=== PATIENT | female | born 1955 | race Caucasian/White ===

== ENCOUNTER 2020-06-25 07:55 | Outpatient (REF) | payer OTHER, SELFPAY ==
[2020-06-25 11:45] LABS: Estimated Average Glucose 128 mg/dL; Hemoglobin A1c % 6.1 %
[2020-06-25 11:49] LABS: Alanine Aminotransferase 19 U/L (0-31); Albumin Level 4.2 g/dL (3.5-5.0); Alkaline Phosphatase 63 U/L (39-117); Anion Gap 14 (12-20); Aspartate Amino Transferase 17 U/L (5-31); Bilirubin Total 0.6 mg/dL (0.0-1.0); Blood Urea Nitrogen 19 mg/dL (9-16); Calcium 8.8 mg/dL (8.4-10.2); Carbon Dioxide 24 mmol/L (22-29); Chloride 107 mmol/L (96-108); Cholesterol 229 mg/dL; Estimated Glomerular Filt Rate > 60; Glucose Fasting 124 mg/dL (60-99); HDL Cholesterol 58 mg/dL; LDL Cholesterol Calculated 150 mg/dl; Potassium 4.6 mmol/L (3.3-5.1); Sodium 140 mmol/L (135-145); Total Protein 7.1 g/dL (6.5-8.0); Triglycerides 105 mg/dL
[2020-06-25 12:15] LABS: Creatinine Urine 150.52 mg/dL; Microalbum/Creatinine Ratio Ur 3.9 ug/mg cr
== END 2020-06-25 07:56 | disposition home or self-care (01) ==
LOC: HO.MANLR 07:55
PROVIDERS: PCP Internal Medicine; Visit Provider Internal Medicine
DX: E11.65 Type 2 diabetes mellitus with hyperglycemia (principal)
CPT/HCPCS: 36415; 80053; 80061; 82043; 83036

== ENCOUNTER 2020-10-23 08:00 | Outpatient (REF) | payer OTHER, SELFPAY ==
[2020-10-23 11:24] LABS: Estimated Average Glucose 123 mg/dL; Hemoglobin A1c % 5.9 %
== END 2020-10-23 08:01 | disposition home or self-care (01) ==
LOC: HO.MANLDS 08:00
PROVIDERS: PCP Internal Medicine; Visit Provider Internal Medicine
DX: E11.65 Type 2 diabetes mellitus with hyperglycemia (principal)
CPT/HCPCS: 36415; 83036

== ENCOUNTER 2021-03-18 07:32 | Outpatient (REF) | payer OTHER, SELFPAY ==
[2021-03-18 11:23] LABS: Creatinine Urine 124.52 mg/dL; Microalbumin Urine < 5.0 mg/L
[2021-03-18 11:28] LABS: Alanine Aminotransferase 19 U/L (0-31); Albumin Level 4.3 g/dL (3.5-5.0); Alkaline Phosphatase 64 U/L (39-117); Anion Gap 12 (12-20); Aspartate Amino Transferase 18 U/L (5-31); Bilirubin Total 0.6 mg/dL (0.0-1.0); Blood Urea Nitrogen 12 mg/dL (9-16); Calcium 9.3 mg/dL (8.4-10.2); Carbon Dioxide 29 mmol/L (22-29); Chloride 103 mmol/L (96-108); Cholesterol 182 mg/dL; Estimated Glomerular Filt Rate > 60; Glucose Fasting 186 mg/dL (60-99); HDL Cholesterol 63 mg/dL; LDL Cholesterol Calculated 103 mg/dl; Potassium 4.6 mmol/L (3.3-5.1); Sodium 139 mmol/L (135-145); Total Protein 7.1 g/dL (6.5-8.0); Triglycerides 84 mg/dL
== END 2021-03-18 07:33 | disposition home or self-care (01) ==
LOC: HO.MANLDS 07:32
PROVIDERS: PCP Internal Medicine; Visit Provider Internal Medicine
DX: E11.65 Type 2 diabetes mellitus with hyperglycemia (principal); I10 Essential (primary) hypertension
CPT/HCPCS: 36415; 80053; 80061; 82043

== ENCOUNTER 2021-06-19 07:52 | Outpatient (REF) | payer OTHER, SELFPAY ==
[2021-06-19 08:52] LABS: Alanine Aminotransferase 18 U/L (0-31); Albumin Level 4.1 g/dL (3.5-5.0); Alkaline Phosphatase 94 U/L (39-117); Anion Gap 11 (12-20); Aspartate Amino Transferase 18 U/L (5-31); Bilirubin Total 0.2 mg/dL (0.0-1.0); Blood Urea Nitrogen 13 mg/dL (9-16); Calcium 9.5 mg/dL (8.4-10.2); Carbon Dioxide 31 mmol/L (22-29); Chloride 103 mmol/L (96-108); Estimated Glomerular Filt Rate > 60; Glucose Random 269 mg/dL (60-115); Potassium 5.1 mmol/L (3.3-5.1); Sodium 140 mmol/L (135-145)
[2021-06-19 08:58] LABS: Estimated Average Glucose 212 mg/dL
[2021-06-19 09:07] LABS: ~HepC Num1 0.07 S/CO (0.00-0.79); ~Hepatitis C Antibody Nonreactive (Nonreactive)
[2021-06-19 09:18] LABS: Thyroid Stimulating Hormone 1.52 uIU/mL (0.32-4.0)
== END 2021-06-19 07:53 | disposition home or self-care (01) ==
LOC: HO.LAB 07:52
PROVIDERS: PCP Internal Medicine; Visit Provider Internal Medicine
DX: E11.65 Type 2 diabetes mellitus with hyperglycemia (principal); E03.9 Hypothyroidism, unspecified; I10 Essential (primary) hypertension; Z11.59 Encounter for screening for other viral diseases
CPT/HCPCS: 36415; 80053; 83036; 84443; 86803

== ENCOUNTER 2021-08-29 09:09 | Outpatient (REF) | payer MEDICARE, SELFPAY ==
[2021-08-29 10:32] LABS: Cholesterol 169 mg/dL; HDL Cholesterol 52 mg/dL; LDL Cholesterol Calculated 96 mg/dl; Triglycerides 107 mg/dL
[2021-08-29 10:40] LABS: Creatinine Urine 87.12 mg/dL; Microalbumin Urine < 5.0 mg/L
[2021-08-29 10:43] LABS: Estimated Average Glucose 151 mg/dL; Hemoglobin A1c % 6.9 %
== END 2021-08-29 09:10 | disposition home or self-care (01) ==
LOC: HO.LAB 09:09
PROVIDERS: PCP Internal Medicine; Visit Provider Internal Medicine
DX: E11.65 Type 2 diabetes mellitus with hyperglycemia (principal)
CPT/HCPCS: 36415; 80061; 82043; 83036

== ENCOUNTER 2021-12-13 09:41 | Outpatient (REF) | payer MEDICARE, SELFPAY ==
[2021-12-13 11:20] LABS: Estimated Average Glucose 134 mg/dL; Hemoglobin A1c % 6.3 %
[2021-12-13 11:27] LABS: Alanine Aminotransferase 31 U/L (0-31); Albumin Level 4.3 g/dL (3.5-5.0); Alkaline Phosphatase 80 U/L (39-117); Anion Gap 15 (12-20); Aspartate Amino Transferase 22 U/L (5-31); Bilirubin Total 0.7 mg/dL (0.0-1.0); Blood Urea Nitrogen 14 mg/dL (9-16); Calcium 9.2 mg/dL (8.4-10.2); Carbon Dioxide 27 mmol/L (22-29); Chloride 103 mmol/L (96-108); Cholesterol 168 mg/dL; Estimated Glomerular Filt Rate > 60; Glucose Random 166 mg/dL (60-115); HDL Cholesterol 52 mg/dL; LDL Cholesterol Calculated 97 mg/dl; Potassium 5.2 mmol/L (3.3-5.1); Sodium 140 mmol/L (135-145); Total Protein 7.4 g/dL (6.5-8.0); Triglycerides 99 mg/dL
[2021-12-13 11:47] LABS: Free T4 (Free Thyroxine) 1.09 ng/dL (0.71-1.85); Thyroid Stimulating Hormone 1.29 uIU/mL (0.32-4.0)
[2021-12-13 11:55] LABS: Creatinine Urine 301.08 mg/dL; Microalbum/Creatinine Ratio Ur 5.6 ug/mg cr
== END 2021-12-13 09:42 | disposition home or self-care (01) ==
LOC: HO.LAB 09:41
PROVIDERS: PCP Internal Medicine; Visit Provider Internal Medicine
DX: E03.9 Hypothyroidism, unspecified (principal); E11.65 Type 2 diabetes mellitus with hyperglycemia
CPT/HCPCS: 36415; 80053; 80061; 82043; 83036; 84439; 84443

== ENCOUNTER 2021-12-23 14:13 | Outpatient (REF) | payer MEDICARE, SELFPAY ==
--- NOTE | ~2021-12-23 | XR_ITS ---
EXAMINATION: XR ANKLE, LEFT CLINICAL INFORMATION: Laceration. COMPARISON: None TECHNIQUE: AP, lateral, and mortise views of the left ankle. FINDINGS: Soft tissue laceration of the posterior ankle with a few small radiodensities, possibly foreign bodies. No acute fracture or malalignment. XR/XR ankle LT 2V IMPRESSION: Soft tissue laceration along the heel with some subcutaneous radiodensities, possibly foreign bodies. No acute osseous abnormalities.
== END 2021-12-23 14:14 | disposition home or self-care (01) ==
LOC: HO.XRAY 14:13
PROVIDERS: PCP Internal Medicine; Visit Provider Physician Assistant
DX: S91.012A Laceration without foreign body, left ankle, initial encounter (principal); X58.XXXA Exposure to other specified factors, initial encounter; Y93.9 Activity, unspecified; Y92.9 Unspecified place or not applicable; Y99.9 Unspecified external cause status
CPT/HCPCS: 73600

== ENCOUNTER 2022-01-17 12:50 | Outpatient (REF) | payer MEDICARE, SELFPAY ==
--- NOTE | ~2022-01-17 | CT_ITS ---
EXAMINATION: CT OF THE ANKLE WITHOUT CONTRAST, LEFT CLINICAL INFORMATION: Foreign body or object entering through skin. COMPARISON: Radiographs dated 12/23/2021. TECHNIQUE: Multidetector volumetric imaging was obtained through the left ankle without contrast. Multiplanar reformatted images in coronal and sagittal orientations were submitted. This CT examination was performed using dose optimization techniques as appropriate, variously including the following: *Automated exposure control *Adjustment of mA and/or kV according to patient size (this includes techniques or standardized protocols for targeted exams where dose is matched to indication/reason for exam; i.e. extremities or head) *Use of iterative reconstruction technique DLP: 144 mGy-cm FINDINGS: There is generalized soft tissue swelling at the ankle with significant subcutaneous edema. A skin injury is evident at the posterolateral aspect of the calcaneal tuberosity. There is a punctate 1 mm radiodense focus in the subcutaneous fat just superficial to the distal Achilles tendon as seen on image 204 of series 5, possibly a punctate residual radiodense foreign body or a small focus of soft tissue calcification. No other findings to indicate a residual foreign body. No appreciable fractures at the calcaneal tuberosity. The Achilles tendon is intact. There is a subtle avulsion fracture at the anterior process of the calcaneus along its dorsal margin corresponding to the attachment of the bifurcate ligament. No additional acute fractures are identified. There are chronic osseous fragments in the anterolateral gutter and at the tip of the medial malleolus which correspond to prior avulsion injuries. There is a small osseous defect at the talar dome laterally measuring 5 x 8 mm in area, corresponding to a chronic osteochondral injury. Minimal talocrural arthrosis. Subtalar joint appears relatively well preserved. Moderate sized enthesopathic spur is present at the plantar fascial origin on the calcaneus. Intrinsic foot musculature is normal in attenuation. CT/CT ankle LT wo IV con IMPRESSION: 1. Soft tissue injury at the posterolateral aspect of the calcaneal tuberosity. There is a punctate 1 mm radiodense focus in the subcutaneous fat just superficial to the distal Achilles tendon, possibly a punctate residual radiodense foreign body or a small focus of soft tissue calcification. 2. Subtle avulsion fracture at the anterior process of the calcaneus at the attachment of the bifurcate ligament. 3. 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
== END 2022-01-17 12:51 | disposition home or self-care (01) ==
LOC: HO.CT 12:50
PROVIDERS: Visit Provider Physician Assistant
DX: S90.55 Superficial foreign body of ankle (principal); W45.8XXD Other foreign body or object entering through skin, subsequent encounter
CPT/HCPCS: 73700

== ENCOUNTER → 2022-01-30 10:13 | Outpatient (BNVA) | payer MEDICARE, SELFPAY | PROVIDERS: PCP Internal Medicine; Visit Provider Physician Assistant | DX: S92.002A Unspecified fracture of left calcaneus, initial encounter for closed fracture (principal); S97.02XA Crushing injury of left ankle, initial encounter | CPT/HCPCS: 99202 ==

== ENCOUNTER → 2022-02-12 08:16 | Outpatient (BNVA) | payer MEDICARE, SELFPAY | PROVIDERS: PCP Internal Medicine; Visit Provider Physician Assistant | DX: S82.892D Other fracture of left lower leg, subsequent encounter for closed fracture with routine healing (principal); S90.812D Abrasion, left foot, subsequent encounter | CPT/HCPCS: 99212 ==

== ENCOUNTER 2022-03-05 | Outpatient (REF) | payer MEDICARE, SELFPAY ==
--- NOTE | ~2022-03-05 | XR_ITS ---
EXAMINATION: XR calcaneus LT min 2V CLINICAL INFORMATION: Reason for Exam S92.002A - Unspecified fracture of left calcaneus, initial encounter for... COMPARISON: None. TECHNIQUE: Two views of the calcaneus FINDINGS: Previously seen avulsion fracture of the anterior process of the calcaneus is not definitively appreciated radiographically. Plantar calcaneal spurring. Joint spaces are maintained. No joint effusion or soft tissue abnormality. XR/XR calcaneus LT min 2V IMPRESSION: 1. Previously seen avulsion fracture of the anterior process of the calcaneus is not definitively appreciated radiographically. 2. Plantar calcaneal spurring.
== END 2022-03-05 00:01 | disposition home or self-care (01) ==
LOC: HO.HOSX
PROVIDERS: Visit Provider Physician Assistant
DX: S92.002A Unspecified fracture of left calcaneus, initial encounter for closed fracture (principal)
CPT/HCPCS: 73650; 99212

== ENCOUNTER 2022-03-19 10:13 | Outpatient (REF) | payer MEDICARE, SELFPAY ==
[2022-03-19 11:18] LABS: Estimated Average Glucose 140 mg/dL; Hemoglobin A1c % 6.5 %
== END 2022-03-19 10:14 | disposition home or self-care (01) ==
LOC: HO.LABR 10:13
PROVIDERS: PCP Internal Medicine; Visit Provider Internal Medicine
DX: E11.65 Type 2 diabetes mellitus with hyperglycemia (principal)
CPT/HCPCS: 36415; 83036

== ENCOUNTER 2022-07-09 12:46 | Outpatient (REF) | payer MEDICARE, SELFPAY ==
[2022-07-09 14:17] LABS: Estimated Average Glucose 137 mg/dL; Hemoglobin A1c % 6.4 %
== END 2022-07-09 12:47 | disposition home or self-care (01) ==
LOC: HO.LABR 12:46
PROVIDERS: PCP Internal Medicine; Visit Provider Internal Medicine
DX: E11.65 Type 2 diabetes mellitus with hyperglycemia (principal)
CPT/HCPCS: 36415; 83036

== ENCOUNTER 2022-07-24 07:57 | Outpatient (REF) | payer MEDICARE, SELFPAY ==
--- NOTE | ~2022-07-24 | MM_ITS ---
EXAMINATION: BONE DENSITOMETRY CLINICAL INDICATION: Osteopenia. COMPARISON: None (current study represents initial baseline exam). TECHNIQUE: Using a [employer] DXA System (software version: 13.1) manufactured by [employer], dual-energy x-ray absorptiometry was performed of the lumbar spine and left hip. The images are of good technical quality. Summary results are attached. FINDINGS: AP SPINE L1-L4: BMD 1.171 g/cm2, Z-score 0.8, T-score -0.1, normal. LEFT FEMUR, NECK: BMD 0.892 g/cm2, Z-score 0.0, T-score -1.0, normal. LEFT FEMUR, TOTAL: BMD 1.014 g/cm2, Z-score 0.8, T-score 0.0, normal. IDENTIFIED RISK FACTORS: Menopause, secondary osteoporosis. HISTORY OF FRACTURE: None listed. MEDICATIONS: Vitamin D. MM/XR DEXA axial skeleton IMPRESSION: 1. DIAGNOSIS: Normal bone density based on the lowest T-score value of -1.0 in the femoral neck applying World Health Organization criteria. 2. 10-YEAR FRACTURE RISK PREDICTION, FRAX: According to the guidelines, FRAX calculation should only be performed on patients in the osteopenia bone density category. Therefore, FRAX was not performed on this patient. 3. Treatment Recommendations: NOF guidelines recommend consideration for treatment in postmenopausal women and men age 50 and older presenting with the following: -A hip or vertebral (clinical or morphometric) fracture. -T-score less than or equal to -2.5 at the femoral neck or spine after appropriate evaluation to exclude secondary causes. -Low bone mass at the hip or spine and a 10-year fracture probability by FRAX of greater than or equal to 3% for hip fracture or greater than or equal to 20% for major osteoporotic fracture based on the [place] adapted WHO algorithm. 4. Other Recommendations: All treatment decisions require clinical judgment and consideration of individual patient factors, including patient preferences, comorbidities, previous drug use, risk factors not captured in the FRAX model (e.g. frailty, falls, vitamin D deficiency, increased bone turnover, interval significant decline in bone density) and possible under or overestimation of fracture risk by FRAX. FUTURE SCAN RECOMMENDATION: People with diagnosed cases of osteoporosis or at high risk for fracture should have regular bone mineral density tests. For patients eligible for Medicare, routine testing is allowed once every 2 years. The testing frequency can be increased to one year for patients who have rapidly progressing disease, those who are receiving or discontinuing medical therapy to restore bone mass, or have additional risk factors.
== END 2022-07-24 07:58 | disposition home or self-care (01) ==
LOC: HO.MAMMO 07:57
PROVIDERS: Visit Provider Internal Medicine
DX: Z13.820 Encounter for screening for osteoporosis (principal); Z78.0 Asymptomatic menopausal state; M85.80 Other specified disorders of bone density and structure, unspecified site
CPT/HCPCS: 77080

== ENCOUNTER 2022-11-17 08:17 | Outpatient (REF) | payer MEDICARE, SELFPAY ==
[2022-11-17 09:15] LABS: Estimated Average Glucose 114 mg/dL; Hemoglobin A1C 148.6408 umol/L; Hemoglobin A1c % 5.6 %
== END 2022-11-17 08:18 | disposition home or self-care (01) ==
LOC: HO.LABR 08:17
PROVIDERS: Visit Provider Internal Medicine
DX: E11.65 Type 2 diabetes mellitus with hyperglycemia (principal)
CPT/HCPCS: 36415; 83036

== ENCOUNTER 2023-03-31 09:46 | Outpatient (REF) | payer MEDICARE, SELFPAY ==
[2023-03-31 10:50] LABS: Estimated Average Glucose 163 mg/dL; Hemoglobin A1c % 7.3 % (<6.0)
== END 2023-03-31 09:47 | disposition home or self-care (01) ==
LOC: HO.LABR 09:46
PROVIDERS: PCP Internal Medicine; Visit Provider Internal Medicine
DX: E11.65 Type 2 diabetes mellitus with hyperglycemia (principal)
CPT/HCPCS: 36415; 83036

== ENCOUNTER 2023-04-06 12:03 | Outpatient (REF) | payer MEDICARE, SELFPAY ==
--- NOTE | ~2023-04-06 | XR_ITS ---
EXAMINATION: XR HAND, BILATERAL CLINICAL INFORMATION: Pain COMPARISON: None available. TECHNIQUE: 3 views of each hand FINDINGS: RIGHT: No acute visible fracture or dislocation. Slight positive ulnar variance. Mild multi joint arthritic changes. Joint spaces and alignment are maintained. Soft tissues are unremarkable. LEFT: No acute visible fracture or dislocation. Slight positive ulnar variance. Mild multi joint arthritic changes. Joint spaces and alignment are maintained. Soft tissues are unremarkable. XR/XR hand RT min 3V IMPRESSION: 1. No acute visible fracture or dislocation. 2. Bilateral mild multi joint arthritic changes. 3. Bilateral slight positive ulnar variance.
--- NOTE | ~2023-04-06 | XR_ITS ---
EXAMINATION: XR FOOT, LEFT CLINICAL INFORMATION: Pain COMPARISON: Left calcaneus radiograph from 03/05/2022 TECHNIQUE: AP, lateral, and oblique views of the left foot. FINDINGS: No acute visible fracture or dislocation. Multi joint arthritic changes. Plantar calcaneal heel spur. Slight spurring the dorsal midfoot. Joint spaces and alignment are maintained. Soft tissues are unremarkable. XR/XR foot LT min 3V IMPRESSION: 1. No acute visible fracture or dislocation. 2. Multi joint arthritic changes. 3. Plantar calcaneal heel spur.
--- NOTE | ~2023-04-06 | XR_ITS ---
EXAMINATION: XR HAND, BILATERAL CLINICAL INFORMATION: Pain COMPARISON: None available. TECHNIQUE: 3 views of each hand FINDINGS: RIGHT: No acute visible fracture or dislocation. Slight positive ulnar variance. Mild multi joint arthritic changes. Joint spaces and alignment are maintained. Soft tissues are unremarkable. LEFT: No acute visible fracture or dislocation. Slight positive ulnar variance. Mild multi joint arthritic changes. Joint spaces and alignment are maintained. Soft tissues are unremarkable. XR/XR hand LT min 3V IMPRESSION: 1. No acute visible fracture or dislocation. 2. Bilateral mild multi joint arthritic changes. 3. Bilateral slight positive ulnar variance.
== END 2023-04-06 12:04 | disposition home or self-care (01) ==
LOC: HO.XRAY 12:03
PROVIDERS: PCP Internal Medicine; Visit Provider Internal Medicine
DX: M79.641 Pain in right hand (principal); M79.672 Pain in left foot; M79.642 Pain in left hand
CPT/HCPCS: 73130; 73630

== ENCOUNTER 2023-05-23 07:53 | Outpatient (REF) | payer MEDICARE, SELFPAY ==
[2023-05-23 09:04] LABS: Estimated Average Glucose 146 mg/dL; Hemoglobin A1c % 6.7 % (<6.0)
== END 2023-05-23 07:54 | disposition home or self-care (01) ==
LOC: HO.LABR 07:53
PROVIDERS: PCP Internal Medicine; Visit Provider Internal Medicine
DX: E11.65 Type 2 diabetes mellitus with hyperglycemia (principal)
CPT/HCPCS: 36415; 83036

== ENCOUNTER 2023-06-15 13:00 | Outpatient (RCR) | payer MEDICARE, SELFPAY | END 2023-07-15 10:42 | disposition home or self-care (01) | LOC: HO.PT 13:00 | PROVIDERS: PCP Internal Medicine; Visit Provider Physician Assistant | DX: R20.0 Anesthesia of skin (principal) | CPT/HCPCS: 97110; 97140; 97161 ==

== ENCOUNTER 2023-08-04 09:55 | Outpatient (REF) | payer MEDICARE, SELFPAY | END 2023-08-04 09:56 | disposition home or self-care (01) | LOC: HO.MAMMO 09:55 | PROVIDERS: PCP Internal Medicine; Visit Provider Internal Medicine | DX: Z12.31 Encounter for screening mammogram for malignant neoplasm of breast (principal) | CPT/HCPCS: 77063; 77067 ==

== ENCOUNTER → 2023-08-04 10:30 | Outpatient (BNV) | payer MEDICARE, SELFPAY | PROVIDERS: PCP Internal Medicine; Visit Provider Radiology Diagnostic Radiology | DX: Z12.31 Encounter for screening mammogram for malignant neoplasm of breast (principal) | CPT/HCPCS: 77063; 77067 ==

== ENCOUNTER 2023-08-18 09:49 | Outpatient (REF) | payer MEDICARE, SELFPAY ==
[2023-08-18 10:06] LABS: MANUAL DIFF FLAG NO
[2023-08-18 10:34] LABS: Basophils Absolute Auto 0.1 X10*3/uL (0.0-0.2); Basophils Percent Auto 0.9 % (0-2); Eosinophils Absolute Auto 0.3 X10*3/uL (0.0-0.4); Eosinophils Percent Auto 3.8 % (0-4); Hematocrit 43.9 % (37.0-47.0); Imm Gran Abs Auto 0.06 X10*3/uL (0.00-0.03); Imm Gran Pct Auto 0.7 % (0.0-0.4); Lymphocytes Percent Auto 23.8 % (20-40); Mean Corpuscular HGB Conc 34.2 g/dl (31.0-35.0); Mean Corpuscular Hemoglobin 31.9 pg (27.0-33.0); Mean Corpuscular Volume 93.4 fL (80.0-98.0); Mean Platelet Volume 9.9 fL (9.4-12.3); Monocytes Absolute Auto 0.7 X10*3/uL (0.1-1.2); Monocytes Percent Auto 8.5 % (2-11); Neutrophils Absolute Auto 5.3 x10*3/uL (2.0-8.3); Neutrophils Percent Auto 62.3 % (45-73); Platelet Count 321 X10*3/uL (160-400); White Blood Count 8.5 X10*3/uL (4.8-10.8)
[2023-08-18 10:58] LABS: Estimated Average Glucose 123 mg/dL; Hemoglobin A1C 149.4011 umol/L; Hemoglobin A1c % 5.9 % (<6.0)
[2023-08-18 11:03] LABS: Creatinine Urine 247.59 mg/dL; Microalbum/Creatinine Ratio Ur 5.2 ug/mg cr (<30)
[2023-08-18 11:27] LABS: Alanine Aminotransferase 18 U/L (0-31); Albumin Level 4.3 g/dL (3.5-5.0); Alkaline Phosphatase 64 U/L (39-117); Anion Gap 11 (12-20); Aspartate Amino Transferase 19 U/L (5-31); Bilirubin Total 0.7 mg/dL (0.0-1.0); Blood Urea Nitrogen 15 mg/dL (9-16); Calcium 9.6 mg/dL (8.4-10.2); Carbon Dioxide 29 mmol/L (22-29); Chloride 106 mmol/L (96-108); Cholesterol 185 mg/dL (<200); Estimated Glomerular Filt Rate > 60; Glucose Random 137 mg/dL (60-115); HDL Cholesterol 62 mg/dL (>40); LDL Cholesterol Calculated 104 mg/dL (<100); Potassium 4.8 mmol/L (3.3-5.1); Sodium 141 mmol/L (135-145); Total Protein 7.4 g/dL (6.5-8.0); Triglycerides 96 mg/dL (<150)
== END 2023-08-18 09:50 | disposition home or self-care (01) ==
LOC: HO.LAB 09:49
PROVIDERS: PCP Internal Medicine; Visit Provider Internal Medicine
DX: Z00.00 Encounter for general adult medical examination without abnormal findings (principal); Z13.6 Encounter for screening for cardiovascular disorders; E11.9 Type 2 diabetes mellitus without complications; E03.9 Hypothyroidism, unspecified
CPT/HCPCS: 36415; 80053; 80061; 82043; 82570; 83036; 84443; 85025

== ENCOUNTER 2024-01-29 11:16 | Outpatient (REF) | payer MEDICARE, SELFPAY ==
[2024-01-29 12:26] LABS: Estimated Average Glucose 174 mg/dL; Hemoglobin A1c % 7.7 % (<6.0)
[2024-01-29 12:30] LABS: Creatinine Urine 213.48 mg/dL; Microalbum/Creatinine Ratio Ur 4.6 ug/mg cr (<30)
[2024-01-29 12:51] LABS: Alanine Aminotransferase 17 U/L (0-31); Albumin Level 4.3 g/dL (3.5-5.0); Alkaline Phosphatase 75 U/L (39-117); Anion Gap 13 (12-20); Aspartate Amino Transferase 16 U/L (5-31); Bilirubin Total 0.6 mg/dL (0.0-1.0); Blood Urea Nitrogen 18 mg/dL (9-16); Calcium 9.8 mg/dL (8.4-10.2); Carbon Dioxide 28 mmol/L (22-29); Chloride 106 mmol/L (96-108); Cholesterol 211 mg/dL (<200); Estimated Glomerular Filt Rate > 60; Glucose Random 213 mg/dL (60-115); HDL Cholesterol 62 mg/dL (>40); LDL Cholesterol Calculated 123 mg/dL (<100); Potassium 4.6 mmol/L (3.3-5.1); Sodium 142 mmol/L (135-145); Total Protein 7.5 g/dL (6.5-8.0); Triglycerides 130 mg/dL (<150)
[2024-01-29 12:57] LABS: Free T4 (Free Thyroxine) 0.99 ng/dL (0.71-1.85); Thyroid Stimulating Hormone 0.61 uIU/mL (0.32-4.0)
== END 2024-01-29 11:17 | disposition home or self-care (01) ==
LOC: HO.LABR 11:16
PROVIDERS: PCP Internal Medicine; Visit Provider Internal Medicine
DX: E11.9 Type 2 diabetes mellitus without complications (principal); E03.9 Hypothyroidism, unspecified
CPT/HCPCS: 36415; 80053; 80061; 82043; 82570; 83036; 84439; 84443

== ENCOUNTER 2024-06-11 07:38 | Outpatient (REF) | payer MEDICARE, SELFPAY ==
[2024-06-11 09:05] LABS: Estimated Average Glucose 232 mg/dL; Hemoglobin A1c % 9.7 % (<6.0); Total Hemoglobin (HGBA1C) 4038.5832 umol/L
[2024-06-11 09:58] LABS: Alanine Aminotransferase 18 U/L (0-31); Albumin Level 4.1 g/dL (3.5-5.0); Alkaline Phosphatase 86 U/L (39-117); Anion Gap 11 (12-20); Aspartate Amino Transferase 22 U/L (5-31); Bilirubin Total 0.7 mg/dL (0.0-1.0); Blood Urea Nitrogen 18 mg/dL (9-16); Calcium 9.5 mg/dL (8.4-10.2); Carbon Dioxide 28 mmol/L (22-29); Chloride 107 mmol/L (96-108); Cholesterol 181 mg/dL (<200); Estimated Glomerular Filt Rate > 60; Glucose Random 315 mg/dL (60-115); HDL Cholesterol 54 mg/dL (>40); LDL Cholesterol Calculated 100 mg/dL (<100); Potassium 4.7 mmol/L (3.3-5.1); Sodium 141 mmol/L (135-145); Total Protein 7.3 g/dL (6.5-8.0); Triglycerides 138 mg/dL (<150)
[2024-06-11 10:12] LABS: TSH reflex Free T4 0.92 uIU/mL (0.32-4.0)
[2024-06-11 11:01] LABS: Creatinine Urine 187.76 mg/dL; Microalbum/Creatinine Ratio Ur 4.7 ug/mg cr (<30)
== END 2024-06-11 07:39 | disposition home or self-care (01) ==
LOC: HO.LABR 07:38
PROVIDERS: PCP Internal Medicine; Visit Provider Internal Medicine
DX: E11.65 Type 2 diabetes mellitus with hyperglycemia (principal)
CPT/HCPCS: 36415; 80053; 80061; 82043; 82570; 83036; 84443

== ENCOUNTER 2024-09-03 09:43 | Outpatient (REF) | payer MEDICARE, SELFPAY ==
--- NOTE | ~2024-09-03 | MM_ITS ---
EXAMINATION: MM SCREENING DIGITAL BREAST TOMOSYNTHESIS, BILATERAL CLINICAL INFORMATION: Screening. Asymptomatic. COMPARISON: Mammography: Comparison is made with available priors TECHNIQUE: Digital breast mammography with tomosynthesis is performed in both the craniocaudal and mediolateral oblique views along with computer-aided detection (CAD). FINDINGS: There are scattered areas of fibroglandular density (ACR BI-RADS breast composition Category b). There are no significant masses, abnormal calcifications, or other abnormalities. MM/MM tomosynthesis screening BI IMPRESSION: No mammographic evidence of malignancy. ASSESSMENT: BI-RADS BI-RADS 1 - Negative RECOMMENDATION: Routine annual mammography screening. 1 year F/U This examination should not preclude the clinical evaluation of a suspicious palpable abnormality. This patient's information was entered into a reminder system with a target due date for their next mammogram. Electronically signed by: Zelda Stoddard DO 09/10/2024 01:38 PM EDT
--- OUTSIDE RECORDS SUMMARY | 2024-09-03 09:46 | XMS_ITS | Data Portability ---
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 MUST MEET 2 OUT OF 3 ELEMENTS: PROBLEMS, DATA OR RISK ELEMENT 1: PROBLEMS ADDRESSED 1 OR MORE CHRONIC ILLNESS WITH EXACERBATION OR 2 OR MORE STABLE CHRONIC ILLNESSES OR 1 UNDIAGNOSED NEW PROBLEM OR 1 ACUTE ILLNESS W/SYMPTOMS OR 1 ACUTE COMPLICATED INJURY ELEMENT 2: DATA MUST MEET 1 OF 3 CATEGORIES CATEGORY 1: REVIEW OF PRIOR EXTERNAL NOTES, REVIEW OF RESULTS, ORDERING OF EACH TEST, ASSESSMENT REQUIRING INDEPENDENT HISTORIAN OR CATEGORY 2: INDEPENDENT INTERPRETATION OF TESTS BY ANOTHER PHYSICIAN OR SPECIALIST OR CATEGORY 3: DISCUSSION OF MGT OR TEST INTERPRETATION W/EXTERNAL PHYSICIAN OR SPECIALIST ELEMENT 3: RISK RISK OF COMPLICATIONS AND/OR MORBIDITY OR MORTALITY OF PATIENT MANAGEMENT PROVIDER MUST THOROUGHLY DOCUMENT EACH ELEMENT THAT IS COVERED Not available 04/06/2023 11:10:20 05/25/2023 05/25/2023 Patient presente d to office today for their Medicare Annual Wellness Visit. Education was provided on healthy nutrition, including a diet rich in fruits and vegetables, minimizing simple carbohydrates, salt, and saturated fats. Encouraged regular cardiovascular exercise such as walking at least 30 minutes daily, 5 times per week. Emphasized preventive health measures and educated pt on fall prevention and community-based lifestyle interventions to help reduce health risks and promote healthy living. 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 2 OUT OF 3 ELEMENTS: PROBLEMS, DATA OR RISK ELEMENT 1: PROBLEMS ADDRESSED 1 OR MORE CHRONIC ILLNESS WITH EXACERBATION OR 2 OR MORE STABLE CHRONIC ILLNESSES OR 1 UNDIAGNOSED NEW PROBLEM OR 1 ACUTE ILLNESS W/SYMPTOMS OR 1 ACUTE COMPLICATED INJURY ELEMENT 2: DATA MUST MEET 1 OF 3 CATEGORIES CATEGORY 1: REVIEW OF PRIOR EXTERNAL NOTES, REVIEW OF RESULTS, ORDERING OF EACH TEST, ASSESSMENT REQUIRING INDEPENDENT HISTORIAN OR CATEGORY 2: INDEPENDENT INTERPRETATION OF TESTS BY ANOTHER PHYSICIAN OR SPECIALIST OR CATEGORY 3: DISCUSSION OF MGT OR TEST INTERPRETATION W/EXTERNAL PHYSICIAN OR SPECIALIST ELEMENT 3: RISK RISK OF COMPLICATIONS AND/OR MORBIDITY OR MORTALITY OF PATIENT MANAGEMENT PROVIDER MUST THOROUGHLY DOCUMENT EACH ELEMENT THAT IS COVERED Not available 08/24/2023 15:18:04 02/01/2024 02/01/2024 [id number] [place] [id number]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) [facility] MODERATE MUST MEET 2 OUT OF 3 ELEMENTS: PROBLEMS, DATA OR RISK ELEMENT 1: PROBLEMS ADDRESSED 1 OR MORE CHRONIC ILLNESS WITH EXACERBATION OR 2 OR MORE STABLE CHRONIC ILLNESSES OR 1 UNDIAGNOSED NEW PROBLEM OR 1 ACUTE ILLNESS W/SYMPTOMS OR 1 ACUTE COMPLICATED INJURY ELEMENT 2: DATA MUST MEET 1 OF 3 CATEGORIES CATEGORY 1: REVIEW OF PRIOR EXTERNAL NOTES, REVIEW OF RESULTS, ORDERING OF EACH TEST, ASSESSMENT REQUIRING INDEPENDENT HISTORIAN OR CATEGORY 2: INDEPENDENT INTERPRETATION OF TESTS BY ANOTHER PHYSICIAN OR SPECIALIST OR CATEGORY 3: DISCUSSION OF MGT OR TEST INTERPRETATION W/EXTERNAL PHYSICIAN OR SPECIALIST ELEMENT 3: RISK RISK OF COMPLICATIONS AND/OR MORBIDITY OR MORTALITY OF PATIENT MANAGEMENT PROVIDER MUST THOROUGHLY DOCUMENT EACH ELEMENT THAT IS COVERED Not available 02/01/2024 11:55:59 06/13/2024 06/13/2024 [id number] [place] [id number]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) [facility] HIGH MUST MEET 2 OUT OF 3 ELEMENTS: PROBLEMS, DATA OR RISK ELEMENT 1: PROBLEMS 1 OR MORE CHRONIC ILLNESS W/SEVERE EXACERBATION, PROGRESSION MAY REQUIRE HOSPITAL LEVEL CARE OR 1 ACUTE OR CHRONIC ILLNESS OR INJURY THAT POSES A THREAT TO LIFE OR BODILY FUNCTION ELEMENT 2: DATA: MUST MEET 2 OF 3 CATEGORIES CATEGORY 1 REVIEW OF PRIOR EXTERNAL NOTES REVIEW OF THE RESULTS ORDERING OF EACH TEST ASSESSMENT REQUIRING INDEPENDENT HISTORIAN(S) CATEGORY 2: INDEPENDENT INTERPRETATION OF TESTS BY ANOTHER PROVIDER/SPECIALI ST CATEGORY 3: DISCUSSION OF MGT OR TEST INTERPRETATION W/EXTERNAL PHYSICIAN/SPECIAL IST ELEMENT 3: RISK HIGH RISK OF MORBIDITY FROM ADDITIONAL DIAGNOSTIC TESTING OR TREATMENT PROVIDER MUST THOROUGHLY DOCUMENT EACH ELEMENT THAT IS COVERED The patient presented to their appointment today for multiple concerns requiring moderate to high-level decision making and took over 40-45 minutes for an adequate and appropriate history, exam, assessment and treatment plan. This appointment was done with an established patient. Not available 06/13/2024 12:04:10 Plan of Treatment Reminders Order Date Submit Date Provider Last Modified By Organization Details Last Modified Time Details Appointments MEDICARE ANNUAL WELLNESS 2024 09:00A M DR STOVALL Not available Not available Not available Lab lipid panel, blood 2023 024 [facility], [address] [place] [address], [id number], 05/25/2023 14:57:07 CBC w/ auto diff 2023 024 [facility], [address] [place] [address], [id number], 08/18/2023 11:10:04 CMP, serum or plasma 2023 024 [facility], [address] [place] [address], [id number], 05/25/2023 14:57:07 Referral None recorded. Procedures None recorded. Surgeries None recorded. Imaging MAMMO, screening , digital, bilateral 2023 024 [facility], [address] [place], [address], 06/08/2023 08:43:42 bone density 2023 024 [facility], [address] [place], [address], 06/09/2023 08:18:14 XR, hand, 3 or more view 2022 023 [facility], [address] [place], [address], 04/09/2023 13:13:02 XR, foot, 2 view 2022 023 [facility], [address] [place], [address], 04/09/2023 13:14:29 Medication Orders glipizide ER 10 mg tablet, extended release 24 hr 2023 024 [place] [facility], [address] [place] [address], [address], [place], [place], [phone], 02/01/2024 11:53:01 lorazepam 0.5 mg tablet 2023 024 [id number], [address] [place], [address], 02/01/2024 12:00:26 Mounjaro 5 mg/0.5 mL subcutane ous pen injector 2023 024 [facility], [address] [place] [address], [address], [place], [place], [phone], 02/01/2024 11:48:38 Mounjaro 2.5 mg/0.5 mL subcutane ous pen injector 2022 023 [email or web address] [id number], [address] [place], [address], 05/26/2023 14:08:47 Patient TargetsNo targets recorded. Patient Instructions Encounter Date Encounter Id Patient Instructions Last Modified By Organization Details Last Modified Time 04/06/2023 [id number] learning about type 2 diabetes Not available 04/06/2023 11:14:22 type 2 diabetes: care instructions Not available 04/06/2023 11:14:22 05/25/2023 [id number] Discussed and explained advance directives such as standard forms to the {{patient* caregi frederick patient and caregiver}}. Face to face discussion lasted for a duration of __30_ minutes. Not available 05/25/2023 15:02:07 02/01/2024 [id number] learning about type 2 diabetes [email or web address] Not available 02/01/2024 11:52:59 type 2 diabetes: [email or web address] Not [facility] 02/01/2024 11:52:59 Reason for Referral None Reported. Results Created Date Observation Date Name Description Value Unit Range Abnormal Flag Note LastModifiedBy Organization Detail LastModifiedTime 04/09/20 23 04/06/2023 XR, hand, 3 or more view No observ ation record ed. [facility] (Medical Records) [address] [place], [address], 04/10/2023 08:53:03 04/09/20 23 04/06/2023 XR, hand, 3 or more view No observ ation record ed. [facility] (Medical Records) [address] [place], [address], 04/10/2023 08:53:12 04/09/20 23 04/06/2023 XR, foot, 2 view No observ ation record ed. [address] (Medical Records) [address] [place], [address], 04/12/2023 21:49:39 08/16/19 24 08/04/2023 MAMMO , scree mohini, digit al, bilat eral No observ ation record ed. [address] [facility] [address] [place] [address] [place], [address], 08/24/2023 15:14:31 Result Notes None recorded. Problems Name Problem SNOMED Code Status Onset Date Resolution Date Notes Provider Name and Address Organization Details Recorded Time Recurrent urinary tract infection 903769978 Active 2017 Not Available [facility] 4 01:46:16 Anxiety 11592677 Active 2017 Not Available [facility] 4 01:46:16 Hyperchol esterolem ia 69353608 Active 2017 Not Available [facility] 4 01:46:16 Hypothyro idism 15809637 Active 2018 Not Available [facility] 4 01:46:16 Migraine 19336426 Active 2019 Not Available [facility] 4 01:46:16 Essential tremor 319757967 Active 2019 Not Available [facility] 4 01:46:16 Laceratio n of heel 946585555 Active 2021 Not Available [facility] 4 01:46:16 Celluliti s 894374822 Active 2021 Not Available [facility] 4 01:46:16 Laceratio n of ankle 313049257 Active 2021 Not Available [facility] 4 01:46:16 Injury of Achilles tendon 774544942 Active 2022 Not Available [facility] 4 01:46:16 Osteopeni a 580808874 Active 2022 Not Available [facility] 4 01:46:16 Pain of bilateral hands 772287906359 36187 Active 2022 Not Available [facility] 4 01:46:16 Pain in left foot 095408936939 107 Active 2022 Not Available [facility] 4 01:46:16 Type 2 diabetes mellitus 40243509 Active 2022 Not Available [facility] 4 01:46:16 Bilateral bone spur of calcaneum 485903308816 58025 Active 2023 Abhilash Stovall, DO [address] [facility], [place], [address], [facility] 4 15:27:23 Hypertens miguel disorder 87289386 Active 2017 Not Available [facility] 4 01:46:16 Notes:Some problems listed i n Documents: #[id number], #[id number], #[id number], #[id number], #[id number] could not be added to this patient's chart. Please review these documents and add these problems to the patient's chart manually as needed. Problem Notes None recorded. Procedures Surgical History Date Name Laterality Status Provider Name and Address Organization Details Recorded Time 12/21/19 22 Suture/Staple removal completed CHENCHO DUNN [address] [place], [address], [facility] 12/20/2021 15:27:20 12/19/19 22 Suture/Staple removal completed CHENCHO DUNN [address] [place], [address], [facility] 12/18/2021 09:56:10 10/12/19 10 Colonoscopy completed Melita Silva [facility] 05/03/2019 11:08:30 Imaging Results Imaging Date Name Status LastModified by Organiz ation Details LastModified Time 04/06/2023 XR, hand, 3 or more view completed [facility] (Medical Records) [address], [place], , 04/10/2023 08:53:03 04/06/2023 XR, hand, 3 or more view completed [facility] (Medical Records) [address] [place], [address], 04/10/2023 08:53:12 04/06/2023 XR, foot, 2 view completed [address] (Medical Records) [address] [place], [address], 04/12/2023 21:49:39 08/04/2023 MAMMO, screening, digital, bilateral completed [address] [facility] [address] [place], [address], 08/24/2023 15:14:31 Procedure Notes None recorded. Medical Equipment None Reported. Allergies No known drug allergies Medications Name Sig Start Date Stop Date Status Note LastModified by Organization Details LastModified Time freestyle mis lite 01/19 completed Not Available Not Available Not Available freestyle mis lancets 07/14 completed Not Available Not Available Not Available freestyle freedom lite w/device kit 01/19 completed Not Available Not Available Not Available freestyle tracy lite Test 3 x day. active Not Available Not Available No t Available amoxicillin 500 mg capsule 03/20 completed Not Available Not Available Not Available silver sulfadiazin e 1 % topical cream 05/25 completed Not Available Not Available Not Available citalopram 40 mg tablet TAKE 1 TABLET BY MOUTH DAILY active Not Available Not Available No t Available Lac-Hydrin Five 5 % lotion apply to dry skin 1-2 times per day 10/19 completed Not Available Not Available Not Available atorvastati n 10 mg tablet TAKE 1 TABLET BY MOUTH DAILY active Not Available Not Available No t Available sumatriptan 100 mg tablet take 1 tablet po prn for migraine headache (max 2 per day) active Not Available Not Available No t Available cephalexin 250 mg capsule TAKE 1 CAPSULE BY MOUTH 4 TIMES A DAY FOR 3 DAYS 12/18 completed Not Available Not Available Not Available glipizide ER 10 mg tablet, extended release 24 hr TAKE 1 TABLET BY MOUTH DAILY 2023 active Not Available Not Available Not Avai lable FreeStyle Lancets 28 gauge USE TO TEST BLOOD SUGAR 3 TIMES DAILY 2021 active Not Available Not Available Not Avai lable metformin 850 mg tablet Take one tablet twice a day. 04/21 completed Not Available Not Available Not Available topiramate 25 mg tablet TAKE 1 TABLET BY MOUTH AT BEDTIME 02/11 completed Not Available Not Available Not Available sulfamethox azole 800 mg-trimetho prim 160 mg tablet 12/18 completed Not Available Not Available Not Available olanzapine 2.5 mg tablet Take one tablet every day. 09/17 completed Not Available Not Available Not Available acetaminoph en 500 mg tablet TAKE 1 TABLET BY MOUTH EVERY 4 HOURS NEEDED FOR PAIN 05/25 completed Not Available Not Available Not Available triamcinolo ne acetonide 0.1 % topical cream APPLY A THIN LAYER TO THE AFFECTED AREA(S) BY TOPICAL ROUTE 2 TIMES PER DAY UNTIL RASH RESOLVES 02/11 completed Not Available Not Available Not Available levothyroxi ne 100 mcg tablet Take one tablet every day. 09/04 completed Not Available Not Available Not Available levothyroxi ne 88 mcg tablet TAKE 1 TABLET BY MOUTH DAILY active Not Available Not Available No t Available alprazolam 0.5 mg tablet TAKE 1 TABLET BY MOUTH TWICE A DAY NEEDED 01/13 completed Not Available Not Available Not Available propranolol 10 mg tablet TAKE 1 TABLET BY MOUTH TWICE DAILY active Not Available Not Available No t Available prednisolon e acetate 1 % eye drops,suspe nsion 04/21 completed Not Available Not Available Not Available lorazepam 0.5 mg tablet TAKE 1 TABLET BY MOUTH TWICE A DAY NEEDED 2024 active Not Available Not Available Not Avai lable doxycycline monohydrate 100 mg capsule 01/19 completed Not Available Not Available Not Available clotrimazol e-betametha sone 1 %-0.05 % topical cream APPLY TO AFFECTED AREA AND SURROUNDI NG TWICE A DAY (MORNING AND EVENING) FOR 2 WEEKS 01/19 completed Not Available Not Available Not Available ibuprofen 200 mg tablet TAKE 2 TABLETS BY MOUTH EVERY 4 HOURS NEEDED FOR PAIN active Not Available Not Available No t Available betamethaso ne dipropionat e 0.05 % topical cream APPLY TO AFFECTED AREA OF RASH TWICE A DAY UNTIL CLEAR 08/23 completed Not Available Not Available Not Available codeine 10 mg-guaifene sin 100 mg/5 mL oral liquid Take 10 mL every 4 hours by oral route for 5 days. 11/02 completed Not Available Not Available Not Available albuterol sulfate HFA 90 mcg/actuati on aerosol inhaler Inhale 2 puffs every 4 hours by inhalatio n route. 11/02 completed Not Available Not Available Not Available clotrimazol e 1 % topical cream APPLY TO THE AFFECTED AND SURROUNDI NG AREAS OF SKIN BY TOPICAL ROUTE 2 TIMES PER DAY IN THE MORNING AND EVENING 09/26 completed Not Available Not Available Not Available doxycycline hyclate 100 mg tablet TAKE 1 TABLET BY MOUTH TWICE A DAY FOR 7 DAYS 03/24 completed Not Available Not Available Not Available oxycodone 5 mg tablet TAKE 1 TABLET BY MOUTH EVERY 6 HOURS NEEDED 05/25 completed Not Available Not Available Not Available Pneumovax-2 3 25 mcg/0.5 mL injection syringe 03/06 completed Not Available Not Available Not Available topiramate 50 mg tablet TAKE 1 TABLET BY MOUTH EVERY DAY AT BEDTIME 09/17 completed Not Available Not Available Not Available nitrofurant oin monohydrate /macrocryst als 100 mg capsule 12/18 completed Not Available Not Available Not Available Boostrix Tdap 2.5 Lf unit-8 mcg-5 Lf/0.5 mL intramuscul ar syringe 03/06 completed Not Available Not Available Not Available Janumet 50 mg-500 mg tablet 1 po bid 06/13 completed Not Available Not Available Not Available FreeStyle Lite Strips 1 strip via meter tid 2021 active Not Available Not Available Not Avai lable Yuvafem 10 mcg vaginal tablet 01/19 completed Not Available Not Available Not Available Shingrix (PF) 50 mcg/0.5 mL intramuscul ar suspension, kit 02/04 completed Not Available Not Available Not Available Afluria Quad (PF) 60 mcg (15 mcg x 4)/0.5 mL IM syringe 11/02 completed Not Available Not Available Not Available Fluarix Quad (PF) 60 mcg (15 mcg x 4)/0.5 mL IM syringe 01/19 completed Not Available Not Available Not Available Fluzone Quad (PF) 60 mcg (15 mcg x 4)/0.5 mL IM syringe PHARMACY ADMINISTE [facility] 03/06 completed Not Available Not Available Not Available Mounjaro 5 mg/0.5 mL subcutaneou s pen injector inject 5mg sc weekly 01/31 completed Not Available Not Available Not Available Mounjaro 2.5 mg/0.5 mL subcutaneou s pen injector Inject 0.5 mL every week by subcutane ous route for 30 days. 05/26 completed Not Available Not Available Not Available Vitals Date Recorded Body height Body mass index (BMI) Body weight Heart rate Oxygen saturation Oxygen saturation in Arterial blood by Pulse oximetry Systolic blood pressure Diastolic blood pressure Provider Name and Address Organization Details Last Updated DateTime 3 160.27 cm 33.2 kg/m2 97911.3 7 g 78 /min 98 % 98 % 122 mm[Hg] 72 mm[Hg] [facility] 3 10:28:29 Date Recorded Body height Body mass index (BMI) Body weight Heart rate Oxygen saturation Oxygen saturation in Arterial blood by Pulse oximetry Systolic blood pressure Diastolic blood pressure Provider Name and Address Organization Details Last Updated DateTime 4 160.27 cm 35.1 kg/m2 11515.8 8 g 98 /min 99 % 99 % 120 mm[Hg] 78 mm[Hg] Nafisa Chaneykes [facility] 4 14:27:36 Date Recorded Body height Body mass index (BMI) Body weight Heart rate Oxygen saturation Oxygen saturation in Arterial blood by Pulse oximetry Systolic blood pressure Diastolic blood pressure Provider Name and Address Organization Details Last Updated DateTime 4 160.27 cm 35 kg/m2 32674.0 1 g 100 /min 98 % 98 % 136 mm[Hg] 88 mm[Hg] Millicent Houser [facility] 4 15:01:08 Date Recorded Body height Body mass index (BMI) Body weight Heart rate Oxygen saturation Oxygen saturation in Arterial blood by Pulse oximetry Systolic blood pressure Diastolic blood pressure Provider Name and Address Organization Details Last Updated DateTime 4 160.27 cm 35.7 kg/m2 40250.6 6 g 83 /min 98 % 98 % 120 mm[Hg] 78 mm[Hg] Adele Schneidermond [facility] 4 11:23:08 Date Recorded Body height Body mass index (BMI) Body weight Heart rate Oxygen saturation Oxygen saturation in Arterial blood by Pulse oximetry Systolic blood pressure Diastolic blood pressure Provider Name and Address Organization Details Last Updated DateTime 5 163.83 cm 33.8 kg/m2 44699.4 7 g 72 /min 97 % 97 % 138 mm[Hg] 76 mm[Hg] Abhilash Stovall, DO [address] [place], [address] [place] [address] Internal [facility] 5 11:43:10 Social History Question Answer Notes LastModified by Organizat ion Details LastModified Time Tobacco Smoking Status Never Smoker Not Available [facility] 03/06/2020 03:36:23 What Was The Date Of Your Most Recent Tobacco Screening? 06/13/2024 Information not available 06/13/2024 Do You Or Have You Ever Used Any Other Forms Of Tobacco Or Nicotine? No Information not available 07/14/2022 Sex: Unknown Functional Status None recorded. Mental Status None recorded. Family History Nothing Reported. Medical History No medical history recorded. Gynecological HistoryNo gynecological history recorded. Obstetrics History GPAL:G 0 P 0 0 0 0 Immunizations Vaccine Type Date Status Note Provider Nam e and Address Organization Details Recorded Time COVID-19, mRNA, LNP-S, PF, 100 mcg/0.5mL dose or 50 mcg/0.25mL dose 1 completed Not Available [facility] 06/16/2023 01:46:17 COVID-19, mRNA, LNP-S, PF, 100 mcg/0.5mL dose or 50 mcg/0.25mL dose 1 completed Not Available [facility] 06/16/2023 01:46:17 Influenza, split virus, quadrivalent, preservative 8 completed Not Available [facility] 06/16/2023 01:46:17 Influenza, split virus, quadrivalent, preservative 1 completed Not Available [facility] 06/16/2023 01:46:17 zoster recombinant 9 completed Not Available [facility] 06/16/2023 01:46:17 zoster recombinant 1 completed Not Available [facility] 06/16/2023 01:46:17 COVID-19, mRNA, LNP-S, PF, 30 mcg/0.3 mL dose 1 completed Not Available [facility] 06/16/2023 01:46:17 zoster recombinant 2 completed Not Available [facility] 06/16/2023 01:46:17 Influenza, split virus, quadrivalent, preservative 2 completed Not Available [facility] 06/16/2023 01:46:17 COVID-19, mRNA, LNP-S, PF, 100 mcg/0.5mL dose or 50 mcg/0.25mL dose 2 completed Not Available [facility] 06/16/2023 01:46:17 influenza, unspecified formulation 3 completed Not Available [facility] 06/16/2023 01:46:17 Respiratory syncytial virus (RSV), unspecified 3 completed Not Available [facility] 06/16/2023 01:46:17 SARS-COV-2 (COVID-19) vaccine, UNSPECIFIED 4 completed Sam Stovall null, [facility] 11/02/2023 09:51:45 influenza, unspecified formulation 5 completed Millicent Houser [facility], [facility] 07/08/2024 08:24:36 SARS-COV-2 (COVID-19) vaccine, UNSPECIFIED 5 completed Millicent Houser null, [facility] 07/08/2024 08:24:46 Influenza, split virus, quadrivalent, preservative 9 completed Not Available [facility] 06/16/2023 01:46:17 Influenza, split virus, quadrivalent, preservative 0 completed Not Available [facility] 06/16/2023 01:46:17 Tdap 0 completed Not Available [facility] 06/16/2023 01:46:18 pneumococcal polysaccharide PPV23 0 completed Not Available [facility] 06/16/2023 01:46:17 Past Encounters Encounter ID Performer Location Encounter Start Date Encounter Closed Date Diagnosis/Indication Diagnosis SNOMED-CT Code Diagnosis ICD10 Code Diagnosis Note [id number] Abhilash Stovall [facility] [address] [facility],[place] [address] 09/04/2017 16:23:46 09/04/2017 17:08:46 Diabetes mellitus 90146724 E11.65 better overalll states being more careful and eating better Hypertensive disorder 38 012991 I10 doing well overall will cont to follow at home cont same med [id number] Abhilash Stovall [facility] [address] [facility],[place] [address] 12/18/2017 16:14:20 12/18/2017 17:01:35 Hypertensive disorder 27224081 I10 doing well overall will cont to follow at home cont same med Diabetes mellitus 923254 09 E11.65 worse with a1c higher at 9.5 will add janumet abid and rechk month Recurrent urinary tract infection 233990207 N39.0 will refer to urol [id number] Abhilash Stovall [facility] [address] [facility],[place] [address] 01/12/2018 16:23:20 01/12/2018 17:06:05 Hypertensive disorder 82720220 I10 doing well overall will cont to follow at home cont same med Diabetes mellitus 598927 E11.65 a1c better down to 8!!!! will cont janumet abid and rechk 3 month [id number] Abhilash Stovall [facility] [address] [facility],[place] [address] 03/17/2018 10:54:06 03/17/2018 14:35:50 Hypertensive disorder 82108034 I10 STABLE Diabetes mellitus 291063 09 E11.9 at risk for infection if skin not well cared for Xerosis du e to atopic dermatitis [id number] L85.3 if fails see derm - list provided Anxiety 58891589 F41.9 on citalopram 48725 bAhilash Stovall [facility] [address] [facility],[place] [address] 04/21/2018 16:03:22 04/23/2018 14:46:32 Hypercholesterolemia 62044114 E78.00 will rechk next visit Anxiety 27862478 F41.9 Hypertensive disorder 38 918910 I10 doing well overall will cont to follow at home cont same med Diabetes mellitus 854163 E11.65 a1c better down to 5.9 will cont janumet abid!!!!!! !! and rechk 3 month cont to monitor Xerosis du e to atopic dermatitis 820752927 L85.3 [id number] Abhilash Stovall DO [facility] [address] [facility],[place] [address] 07/23/2018 16:18:06 07/23/2018 16:55:22 Hypertensive disorder 55249835 I10 doing well overall will cont to follow at home cont same med Diabetes mellitus 762448 E11.65 a1c STILL down to 5.9 will cont janumet 50/500 a bid!!!!!!! ! and rechk 3 month if a1c still good will decrease dose to 1 qday Hypercholesterolemia 136 90640 E78.00 will rechk next visit [id number] Abhilash Stovall [facility] [address] [facility],[place] [address] 10/19/2018 14:49:22 10/19/2018 16:40:54 Hypertensive disorder 36084542 I10 STABLE Hypothyroidism 00359153 E03.9 Hypercholesterolemia 136 69559 E78.00 Cough 86621478 R05 has used cheratussi n in past without issue h/o asthma f/u if sx change or worsen [id number] Abhilash Stovall [facility] [address] [facility],[place] [address] 11/02/2018 13:49:16 11/02/2018 15:15:20 Diabetes mellitus 67174828 E11.65 a1c STILL down to 6.3 cont janumet 50/500 a bid!!!!!!! ! and rechk 3 month Hypertensive disorder 38 563777 I10 doing well overall will cont to follow at home cont same med Hypothyroidism 88094491 E03.9 no issues will chk next visit Hepatitis C screening 41 9153180 Z11.59 [id number] Abhilash Stovall [facility] [address] [facility],[place] [place] [address] 02/04/2019 16:26:11 02/04/2019 17:03:52 Hypertensive disorder 64061184 I10 doing well overall will cont to follow at home cont same med Anxiety 07771284 F41.9 will increase her topirimate hs Hypothyroidism 12728816 E03.9 no issues will chk next visit Pruritic rash 58841187 L 28.2 will add clotrimazo le [place] [id number] Abhilash Stovall [facility] [address] [facility],[place] [address] 02/11/2019 10:21:09 02/11/2019 11:21:29 Pruritic rash 25148626 L28.2 call if worse or if not resolved in 2 weeks Hypothyroidism 64582479 E03.9 stable as of 02/01 Hypertensive disorder 38 667328 I10 STABLE [id number] Abhilash Stovall [facility] [address] [facility],[place] [address] 05/06/2019 16:24:22 05/09/2019 08:20:55 Anxiety 49751212 F41.9 Increased stress right now due to life circumstan david Will let me know if gets worse Hypertensive disorder 38 281712 I10 doing well overall will cont to follow at home cont same med Diabetes mellitus 612663 09 E1165 a1c STILL down to 6.4 cont janumet 50/500 a bid!!!!!!! ! and rechk 3 month Migraine 98327173 G43.90 9 Well controlled now [id number] Abhilash Stovall, [facility] [address] [facility],[place] [address] 09/27/2019 16:15:55 09/30/2019 15:49:25 Diabetes mellitus 96227890 E11. a1c STILL down to 6.0 and was 6.4 doing great!!! cont janumet 50/500 a bid!!!!!!! ! and rechk 3 month Hypertensive disorder 38 094990 I10 doing well overall will cont to follow at home cont same med Hypothyroidism 64009828 E03.9 no issues will chk next visit tsh nl will rechk next lab Intention tremor 4572602 6 G25.2 could this be one of her meds? [id number] Abhilash Stovall, [facility] [address] [facility],[place] [address] 01/20/2020 15:51:14 01/20/2020 16:44:03 Hypertensive disorder 90573942 I10 doing well overall will cont to follow at home cont same med Diabetes mellitus 750733 E11 a1c is pending and hopefully is STILL down to 6.0 and was 6.4 cont janumet 50/500 a bid!and rechk 3 month On examina tion - tremor outstretched hands 543719528 R25.1 she has noted that this has worsened over time and now her penmanship is terrible and she has a hard time writing or even typing noted sister has dx of essential tremor Hypothyroidism 41431881 E03.9 no issues will chk next visit tsh nl will rechk next lab Migraine 13192959 G43.90 9 not Well controlled now will add low dose beta helen [place] with [place] [id number] Abhilash Stovall [facility] [address] [facility] [address],[place] [address] 03/06/2020 15:37:35 03/06/2020 16:07:39 Migraine 61333704 G43.909 not Well controlled now will add low dose beta helen this will help with tremor too Diabetes mellitus 671002 09 E11.65 a1c is6.2 and is STILL down was 6.0 and was 6.4 cont janumet 50/500 a bid and rechk 3 month Hypertensive disorder 38 512470 I10 doing well overall will cont to follow at home cont same med Hypothyroidism 21502291 E03.9 no issues will chk next visit tsh nl will rechk next lab Essential tremor 7689812 09 G25.0 doing much better with the propranolo l no evid of tremor now [id number] Abhilash Stovall [facility] [address] [facility],[place] [address] 06/27/2020 15:40:52 06/27/2020 16:29:30 Diabetes mellitus 97636080 E11.65 a1c is now 6.1 and in jan was 6.2 and is STILL down was 6.0 and was 6.4 cont janumet 50/500 a bid and rechk 3 month Hypertensive disorder 38 706105 I10 doing well overall will cont to follow at home cont same med Anxiety 88515561 F41.9 Increased stress right now due to life circumstan david Will let me know if gets worse Hypothyroidism 14323953 E03.9 no issues will chk next visit tsh nl will rechk next lab [id number] Abhilash Stovall [facility] [address] [facility],[place] [address] 09/17/2020 09:58:38 09/17/2020 16:47:24 Atypical chest pain 123157385 R07.89 will fu with cardiac testing Anxiety 39682024 F41.9 will use PRN for panic attacks [id number] Abhilash Stovall [facility] [address] [facility] [address],[place] [address] 10/29/2020 15:53:27 10/29/2020 17:13:25 Diabetes mellitus 12240747 E11.65 a1c is now 5.9 and was 6.1 and in jan was 6.2 and is STILL down was 6.0 and was 6.4 cont janumet 50/500 a bid and we will have her stop the second dose now Hypertensive disorder 38 503239 I10 doing well overall will cont to follow at home cont same med Hypothyroidism 02931395 E03.9 no issues will chk next visit tsh nl will rechk next lab [id number] Abhilash Stovall [facility] [address] [facility], [place] [facility] [place] 7 03/20/2021 16:18:05 03/20/2021 17:11:19 Hypothyroidism 93216560 E03.9 no issues will chk next visit tsh nl will rechk next lab Hypertensive disorder 38 207474 I10 doing well overall will cont to follow at home cont same med Diabetes mellitus 195096 a1c is now 5.9 and was 6.1 and in jan was 6.2 and is STILL down was 6.0 and was 6.4 cont janumet 50/500 a bid and we will have her stop the second dose now Hepatitis C screening 41 1045496 Z11.59 27668 Abhilash Stovall [facility] [address] [facility], [place] [address] 04/30/2021 15:47:35 04/30/2021 15:48:11 Fall W19.XXXA stable Concussion with loss of consciousness 65337803 S06.0X1A resolved Hematoma of scalp 306791 004 S00.03XA improving Headache 38467850 R51.9 resolved [id number] Abhilash Stovall [facility] [address] [facility], [place] [address] 06/26/2021 15:59:44 07/01/2021 13:54:36 Hypertensive disorder 64292515 I10 doing well overall will cont to follow at home cont same med Hypothyroidism 50917840 E03.9 no issues will chk next visit tsh nl will rechk next lab Diabetes mellitus 089344 a1c is now 9.0 which is awful and was 5.9 6.1 and in jan was 6.2 and is STILL down was 6.0 and was 6.4 cont janumet 50/500but we will start trulicity 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 F07.81 noted ongoing fatigue after her fallit is getting better [id number] Abhilash Stovall DO [facility] [address] [facility] [address],[place] [address] 09/04/2021 09:33:40 09/04/2021 10:34:19 Hypercholesterolemia 48277680 E78.00 will rechk next visit Hypothyroidism 72385750 E03.9 no issues will chk next visit tsh nl will rechk next lab Hypertensive disorder 38 651893 I10 doing well overall will cont to follow at home cont same med Diabetes mellitus 942768 09 E11.65 a1c is now 6.9 from 9.0 which is greatl and was 5.9 6.1 and in jan was 6.2 and is STILL down was 6.0 and was 6.4microal bumin is normal !!!!did lose some wgt 7 #will be getting eye check next weekcont janumet 50/500but we will stop trulicity due to cost and see how she does [id number] CHENCHO DUNN [facility] [address] [facility],[place] [address] 12/18/2021 09:19:26 12/18/2021 10:29:11 Removal of suture 55362918 Z48.02 will f/u on thursday Laceration of heel 37058 5007 S91.311A will fu with abx Cellulitis 574303767 L03 .90 will start on abx 49746 CHENCHO DUNN [facility] [address] [facility],[place] [address] 12/20/2021 14:33:49 12/20/2021 15:32:27 Laceration of ankle 622195680 S91.012A will fu with repeat XR ankle, continue abxall sutures removedwar m compresses on the scab [id number] Abhilash Stovall DO [facility] [address] [facility],[place] [address] 03/24/2022 14:28:16 03/24/2022 15:19:18 Hypercholesterolemia 85979978 E78.00 will rechk next visit Hypothyroidism 43832353 E03.9 no issues will chk next visit tsh nl will rechk next lab Diabetes mellitus 732846 09 E11.65 a1c is now 6.5 was6.9 from 9.0 whicasmicr oalbumin is duedid lose some wgt 7 # will be getting eye check cont janumet 50/500but we will stop trulicity due to cost and see how she does Hypertensive disorder 38 339413 I10 doing well overall will cont to follow at home cont same med Migraine 99011647 G43.90 9 not Well controlled now will add low dose beta helen this will help with tremor too Anxiety 28641301 F41.9 Increased stress right now due to life circumstan david Will let me know if gets worse [id number] Abhilash Stovall DO [facility] [address] [facility],[place] [address] 07/14/2022 13:20:17 07/14/2022 14:12:38 Hypercholesterolemia 72188305 E78.00 will rechk next visit Hypothyroidism 63772003 E03.9 no issues will chk next visit tsh nl will rechk next lab Hypertensive disorder 38 978878 I10 doing well overall will cont to follow at home cont same med Diabetes mellitus 890400 09 E11.65 a1c is now 6.4 and prior was 6.5 was6.9 from 9.0 which asmangelroalb umin is duedid lose some wgt 7 # will be getting eye check cont janumet 50/500but we will stop trulicity due to cost and see how she does Osteopenia 768846519 M85 .80 [id number] Abhilash Stovall [facility] [address] [facility],[place] [address] [place] [address] 11/21/2022 11:33:16 11/21/2022 14:52:45 Hypertensive disorder 48013509 I10 doing well overall will cont to follow at home cont same med Impaired f asting glycemia 822641757 R73.01 she did it !!! aa1c is down to 5.6 stop naila and see how she does in 3 mo [id number] Abhilash Stovall [facility] [address] [facility],[place] [address] 04/06/2023 10:22:35 04/06/2023 11:21:52 Hypertensive disorder 50301396 I10 doing well overall will cont to follow at home cont same med Hypercholesterolemia 136 90549 E78.00 will rechk next visit Anxiety 65377824 F41.9 Increased stress right now due to life circumstan david Will let me know if gets worse Pain of bi lateral hands 3313087177 7584953 M79.641 xrays ordered Pain in left foot 343994 8769 03608 M79.672 will get xray Type 2 avelino betes mellitus 81283092 E11.9 given worsiening sugars she is ideal candidate for mounjaro we will try to get for her [id number] Abhilash Stovall [facility] [address] [facility],[place] [address] 05/25/2023 14:18:37 05/25/2023 15:02:55 Adult health examination 714086579 Z00.00 doing great and is feeling ok Screening for cardiovascular system disease 637674506 Z13.6 lab ordered Screening for malignant neoplasm of colon 087367393 Z12.11 next visit Screening for osteoporosis 936287402 Z13.820 will order Screening mammography 24 593646 Z12.31 ordered Type 2 avelino betes mellitus 75552419 E11.65 a1c is 6.7 doing great Osteopenia 191169021 M85 .80 [id number] Abhilash Stovall [facility] [address] [facility],[place] [address] 08/24/2023 14:42:18 08/24/2023 16:18:25 Type 2 diabetes mellitus 07361859 E11.65 a1c is 5.9 doing great Hypothyroidism 73806522 E03.9 no issues tsh Anxiety 83252937 F41.9 Increased stress right now due to life circumstan ceshas been having a couple panic attacks she will use a lorazepam next time and call with update Hypertensive disorder 38 119014 I10 doing well overall will cont to follow at home cont same med Bilateral bone spur of calcaneum 3320464603 7122936 M77.31 M77.32 doing much better with her new padded shoes [id number] Abhilash Stovall DO [facility] [address] [facility],[place] [address] 02/01/2024 11:14:53 02/01/2024 12:01:04 Hypertensive disorder 53646219 I10 doing well overall will cont to follow at home cont same med Type 2 avelino betes mellitus 08840314 E11.65 a1c is up to 7.7 on no meds due to finances we will adjust Hypothyroidism 71949601 E03.9 no issues tsh Anxiety 94444760 F41.9 Increased stress right now due to life circumstan connie been having a couple panic attacks she will use a lorazepam next time and call with update [id number] Abhilash Stovall DO [facility] [address] [facility],[place] [address] 06/13/2024 11:27:21 06/13/2024 12:15:38 Hypertensive disorder 23652986 I10 doing well overall will cont to follow at home cont same med Hypercholesterolemia 136 04967 E78.00 will rechk next visit Hypothyroidism 38274795 E03.9 no issues tsh Type 2 avelino betes mellitus 90269833 E11.65 a1c is up to 9.7 and it was 7.7 on no meds due to finances we will adjustglip tomide did not work we will need to have to change back to [facility] bid samples given she will look in to online pharmacy Health Concerns Section Related Observation LastModified by Organization Detai ls LastModified Time None Recorded Concern Status LastModified by Organization Details LastModified Time None Recorded Advance Directives Directive None Recorded Payers Encounter Date Sequence Insurance Name Policy Number Policy Jasmine Covered Member ID Jasmine Member ID Guarantor Name 04/06/2023 1 [facility] (MEDICARE REPLACEMENT/A DVANTAGE - PPO) [id number] Anabel Momin [id number] Anabel Momin 05/25/2023 1 [facility] (MEDICARE REPLACEMENT/A DVANTAGE - PPO) [id number] Anabel Momin [id number] Anabel Momin 08/24/2023 1 [facility] (MEDICARE REPLACEMENT/A DVANTAGE - PPO) [id number] Anabel Momin [id number] Anabel Momin 02/01/2024 1 [facility] (MEDICARE REPLACEMENT/A DVANTAGE - PPO) [id number] Anabel Momin [id number] Anabel Momin 06/13/2024 1 [facility] (MEDICARE REPLACEMENT/A DVANTAGE - PPO) [id number] Anabel Momin [id number] Anabel Momin Notes Date Note Type Note Provider Name and Address Organization Details Recorded Time 3 text/htm l Care Management - DiabetesReported bypatient.Self Care:seeing eye doctor yearly for dilated eye exam; checking feet regularly; normal range of home blood sugars (in the low 100s); no side effects from medications Associated Symptoms:symptoms are usually well controlled; no fatigue; no dizziness; no excessive sweating; no headaches; no confusion; no increased thirst; no increased appetite; no increased urination; no blurred vision; no numbness of feet; no calluses on feetCare Management - HypertensionReported bypatient.Self Care:not under emotional stress Severity:symptoms are improving; does not interfere with daily activities Associated Symptoms:no dizziness; no lightheadedness; no chest pain; no shortness of breath; no palpitations; no edema; no calf muscle cramps; no blurred vision; no confusion; no headaches; no fatigue here for rechk and is doing ok mikhail amaro wgthas stopped the janumet as directed but the wgt has increased a bit and this is reflected in her a1c going form 5.6 to 7.3also still having issues with hand pain even after release surgery and she is also having pain to her heel of left foot feels there is a ball or something she i stepping on Abhilash Stovall, DO [address] [facility], [place], [address], [facility] 04/06/2023 11:14:58 4 text/htm l Medicare Annual Wellness VisitReported bypatient.Diet and Nutrition:healthy diet Fracture Risk:no history of fractures; no recent explained fracture; no sudden unexplained fractures; no previous musculoskeletal injuries Physical Activity:exercises on a regular basis; recent increase in physical activity; good physical condition Depression Risk:never feels sad, empty, or tearful; no loss of interest in activities; no significant changes in weight; no sleep disturbances or insomnia; no agitation; no loss of energy; no feelings of worthlessness or guilt; no thoughts of suicide; no history of depression; no history of mood disorders Orientation:no disorientation to time; no disorientation to date; no disorientation to place Concentration and Memory:no decreased concentrating ability; no memory lapses or loss; does not forget words Speech/Motor difficulties:no speech difficulties; no difficulty expressing formulated concepts; no difficulty with fine manipulative tasks; no difficulty writing/copying; no slowed reaction time; does not knock things over when trying to pick them up Hearing:no loss of hearing Vision:no vision problems Activities of Daily Living:able to bathe with limited or no assistance; able to contol urination and bowels; able to dress with limited or no assistance; able to feed self with limited or no assistance; able to get out of chair or bed with limited or no assistance; able to groom with limited or no assistance; able to toilet with limited or no assistance Instrumental Activities of Daily Living:able to do house work with limited or no assistance; able to grocery shop with limited or no assistance; able to manage medications with limited or no assistance; able to manage money with limited or no assistance; able to prepare meals with limited or no assistance; able to use the phone with limited or no assistance Falls Risk Assessment:no frequent falls while walking; no fall in the past year; no fall since last visit; no dizziness/vertigo Home Safety:no unsafe annalisa hazzards; no unsafe stairs; no unsafe gas appliances; working smoke/CO detectors; wears protective head gear for biking/high velocity; use of seatbelts; practicing 'safer sex'; no vision or hearing loss while driving; no fire arms; has hand bars in the bathroom/shower; good lighting in the home here for cpe using the bmboxpitx6s is 6.7 Abhilash Stovall DO [address] [facility], [place], [address], [facility] 05/25/2023 15:02:36 4 text/htm l Care Management - HypertensionReported bypatient.Self Care:not under emotional stress Severity:symptoms are improving; does not interfere with daily activities Associated Symptoms:no dizziness; no lightheadedness; no chest pain; no shortness of breath; no palpitations; no edema; no calf muscle cramps; no blurred vision; no confusion; no headaches; no fatigue here for rechk and has been doing ok overallrelates that she has had 2 panic attacks while in a storehad very signif episode relates that she has been very sensitive and can get very angry or sad easily Abhilash Stovall DO [address] [place], [address], [facility] 08/24/2023 15:28:23 4 text/htm l Care Management - DiabetesReported bypatient.Self Care:seeing eye doctor yearly for dilated eye exam; checking feet regularly; normal range of home blood sugars (in the low 100s); no side effects from medications Associated Symptoms:symptoms are usually well controlled; no fatigue; no dizziness; no excessive sweating; no headaches; no confusion; no increased thirst; no increased appetite; no increased urination; no blurred vision; no numbness of feet; no calluses on feetNotes:has stopped her meds and is doing this because she cannot afford the meds here for rechk and is ok but could not afford the diabetic meds ](copay of $400) Abhilash Stovall DO [address] [place], [address], [facility] 02/01/2024 12:00:33 5 text/htm l here for rechk and is doing good overallbut has been taking the glipizide and has not gained weight and been okunfortunately her glipizide did not work and her a1c went up to 9.7 Abhilash Stovall DO [address] [place], [address], [facility] 06/13/2024 12:05:42 OBGyn Episode No OBEpisode recorded.
[2024-09-03 11:07] LABS: Estimated Average Glucose 203 mg/dL; Hemoglobin A1C 285.8025 umol/L; Hemoglobin A1c % 8.7 % (<6.0); Total Hemoglobin (HGBA1C) 3976.9449 umol/L
[2024-09-03 11:34] LABS: Lipase 33 U/L (8-78)
== END 2024-09-03 09:44 | disposition home or self-care (01) ==
LOC: HO.MAMMO 09:43
PROVIDERS: PCP Internal Medicine; Visit Provider Internal Medicine
DX: Z12.31 Encounter for screening mammogram for malignant neoplasm of breast (principal); E11.65 Type 2 diabetes mellitus with hyperglycemia
CPT/HCPCS: 36415; 77063; 77067; 83036; 83690

== ENCOUNTER → 2024-09-03 10:15 | Outpatient (BNV) | payer MEDICARE, SELFPAY | PROVIDERS: PCP Internal Medicine; Visit Provider Internal Medicine | DX: Z12.31 Encounter for screening mammogram for malignant neoplasm of breast (principal) | CPT/HCPCS: 77063; 77067 ==

== ENCOUNTER 2024-12-07 08:51 | Outpatient (REF) | payer MEDICARE, SELFPAY ==
--- OUTSIDE RECORDS SUMMARY | 2024-12-07 09:01 | XMS_ITS | Encounter Summary ---
Author Organization [facility] Address [address] [place] [address] Phone Care Team Providers Care Storage Management Consultant Name Role Phone Abhilash Parmar DO Unavailable Paola Gonzalez RAILROAD CAR PAINTER Unavailable [phone] Derek Gutierrez MD Unavailable [phone] Massiel Chacon RAILROAD CAR PAINTER Unavailable [phone] Abhilash Parmar DO Primary Care Provider [phone] Abhilash Parmar DO Primary Care Provider [phone] Encounter Details Date Type Department Care Team (Late Contact Info) Description 08/31/2019 Ancillary Orders Andreina Zimmerman [facility] [address] [place] [address] Chrissy Overton MD [address], [address] [place] [address] [email or web address] Breast screening Social History Tobacco Use Types Packs/Day Years Used Date Smoking Tobacco: Never Smokeless Tobacco: Never Alcohol Use Standard Drinks/Week Comments Yes 0 (1 standard drink = 0.6 oz pur e alcohol) Comments No Sex and Gender Information Value Date Recorded Sex Assigned at Not on file Legal Sex Female 9:53 PM EDT Gender Identity Not on file Sexual Orientation Not on file documented as of this encounter Plan of Treatment Upcoming Encounters Date Type Department Care Team (Late Contact Info) Description 01/30/2025 Procedure Pass [facility] Endoscopy Admitting Dept Virtual Department [address] [place] [address] 01/30/2025 8:30 AM EDT Hospital Encounter [facility] Endoscopy Admitting Dept Virtual Department [address] [place] [address] Clay Ni MD [address] [place] [id number] 01/30/2025 8:30 AM EDT - 01/30/2025 9:00 AM EDT Surgery [facility] Endoscopy Admitting Dept Virtual Department [address] [place] [address] Clay Ni MD [address] [place] [address] [email or web address] COLONOSCOPY Scheduled Procedures Name Priority Associated Diagnoses Date/Ti me COLONOSCOPY Colon cancer screening 01/30/2025 8:30 AM EDT documented as of this encounter Results * BI MAMMOGRAM SCREENING WITH TOMOSYNTHESIS WITH CAD (BILATERAL) (12/22/2019 8:10 AM EDT) Anatomical Region Laterality Modality Breast Left, Breast Right, Breast Bilateral Bila teral Mammography 12/22/2019 12:2 7 PM EDT Impressions 12/22/2019 12:31 PM EDT BILATERAL BREASTS: Negative, no evidence of malignancy. Normal interval follow- up is recommended in 12 months. BI-RADS: BI-RADS CATEGORY: 1 - Negative. DENSITY: There are scattered fibroglandular densities. Narrative 12/22/2019 12:31 PM EDT STUDY: Bilateral screening mammography with tomosynthesis and CAD TECHNIQUE: Bilateral full-field digital screening mammography is obtained and read in conjunction with computer-aided detection. Tomosynthesis as well as 2-D C view imaging were obtained. COMPARISON: Comparison made to multiple prior, most recent November 15, 2018, and most remote September 19, 2013. BREAST COMPOSITION: There are scattered areas of fibroglandular density BILATERAL BREASTS: No significant masses, calcifications or other abnormalities are seen. Procedure Note Neto Owusu MD - 12/22/2019 STUDY: Bilateral screening mammography with tomosynthesis and CAD TECHNIQUE: Bilateral full-field digital screening mammography is obtainedand read in conjunction with computer-aided detection. Tomosynthesis aswell as 2-D C view imaging were obtained. COMPARISON: Comparison made to multiple prior, most recent November 15, 2018,and most remote September 19, 2013. BREAST COMPOSITION: There are scattered areas of fibroglandulardensity BILATERAL BREASTS: No significant masses, calcifications or otherabnormalities are seen. IMPRESSION: BILATERAL BREASTS: Negative, no evidence of malignancy. Normal intervalfollow-up is recommended in 12 months. BI-RADS: BI-RADS CATEGORY: 1 - Negative. DENSITY: There are scattered fibroglandular densities. Chrissy Overton MD IMG MG EXAMS Final Result documented in this encounter Visit Diagnoses Diagnosis Breast screening Breast screening, unspecified Breast screening Breast screening, unspecified Colon cancer screening Special screening for malignant neoplasms, colon documented in this encounter Care Teams Storage Management Consultant Relationship Specialty Start Date End Date Abhilash Parmar DO PCP - General 05/07/17 07/02/20 Abhilash Parmar DO PCP - General Internal Medicine 07/03/20 Abihlash Parmar DO Historical LMR Provider 02/16/17 Paola Gonzalez NP [address] [place] [id number] [email or web address] Historical LMR Provider 02/16/17 2 Derek Gutierrez MD [address] [place] [phone] Historical LMR Provider 02/16/17 2 Massiel Chacon NP [address] [place] [address] Historical LMR Provider 02/16/17 2 documented as of this encounter Additional Source Comments The information contained in this document represents components of the legal health record. It is not the complete legal health record.[facility]
[2024-12-07 09:30] LABS: Hemoglobin A1C 245.5667 umol/L; Total Hemoglobin (HGBA1C) 3837.2135 umol/L
[2024-12-07 10:37] LABS: Cholesterol 190 mg/dL (<200); HDL Cholesterol 61 mg/dL (>40); Triglycerides 158 mg/dL (<150)
== END 2024-12-07 08:52 | disposition home or self-care (01) ==
LOC: HO.LABR 08:51
PROVIDERS: PCP Internal Medicine; Visit Provider Internal Medicine
DX: E11.65 Type 2 diabetes mellitus with hyperglycemia (principal)
CPT/HCPCS: 36415; 80061; 83036

== ENCOUNTER 2024-12-12 09:45 | Outpatient (REF) | payer MEDICARE, SELFPAY ==
--- NOTE | ~2024-12-12 | XR_ITS ---
CLINICAL HISTORY: CERVICALGIA --- Additional Notes or Special Instructions: WO Exam: Cervical spine three views Comparison: None Findings: 3 mm anterolisthesis C4-5. Atlantoaxial relationship is normal. No acute fracture. C5 to C7 prevertebral and uncovertebral osteophytes, mild disc height loss C4-5 and C5-6, moderate disc height loss C6-7. Multilevel facet arthrosis, worse on the left. Unremarkable prevertebral soft tissue, several surgical clips in the anterior lower neck. Lung apices clear. Impression: Cervical spine degenerative spondylosis. Grade 1 degenerative anterolisthesis C4-5. This document has been electronically signed by: Susanne Schaffer MD on 12/12/2024 16:28:35
--- OUTSIDE RECORDS SUMMARY | 2024-12-12 10:16 | XMS_ITS | Encounter Summary ---
Author Organization [facility] Address [address] [place] [address] Phone Care Team Providers Care Raw Mill Operator Name Role Phone Abhilash Parmar DO Unavailable Paola Gonzalez FLAT FOLDING MACHINE OPERATOR Unavailable [phone] Derek Gutierrez MD Unavailable [phone] Massiel Chacon FLAT FOLDING MACHINE OPERATOR Unavailable [phone] Abhilash Parmar DO Primary Care Provider [phone] Abhilash Parmar DO Primary Care Provider [phone] Encounter Details Date Type Department Care Team (Late Contact Info) Description 08/31/2019 Ancillary Orders Andreina Zimmerman [facility] [address] [place] [address] Chrissy Overton MD [address], [address] [place] [address] [email or web address] Breast screening Social History Tobacco Use Types [...] (Late Contact Info) Description 01/30/2025 Procedure Pass [facility] Endoscopy Admitting Dept Virtual Department [address] [place] [address] 01/30/2025 8:30 AM EDT Hospital Encounter [facility] Endoscopy Admitting Dept Virtual Department [address] [place] [address] Clay Ni MD [address] [place] [address] 01/30/2025 8:30 AM EDT - 01/30/2025 9:00 AM EDT Surgery [facility] Endoscopy Admitting Dept Virtual Department [address] [place] [address] Clay Ni MD [address] [place] [phone] [email or web address] COLONOSCOPY Scheduled Procedures Name Priority Associated Diagnoses [...] colon documented in this encounter Care Teams Raw Mill Operator Relationship Specialty Start Date End Date Abhilash Parmar DO PCP - General 05/07/17 07/02/20 Abhilash Parmar DO PCP - General Internal Medicine 07/03/20 Abhilash Parmar DO Historical LMR Provider 02/16/17 Paola Gonzalez NP [address] [place] [phone] [email or web address] Historical LMR Provider 02/16/17 2 Derek Gutierrez MD [address] [place] [id number] Historical LMR Provider 02/16/17 2 Massiel Chacon NP [address] [place] [phone] Historical LMR Provider 02/16/17 2 documented as of this encounter Additional Source Comments The information contained in this document represents components of the legal health record. It is not the complete legal health record.[facility]
[2024-12-12 11:17] LABS: Thyroid Stimulating Hormone 0.40 uIU/mL (0.32-4.0)
== END 2024-12-12 09:46 | disposition home or self-care (01) ==
LOC: HO.XRAY 09:45
PROVIDERS: PCP Internal Medicine; Visit Provider Internal Medicine
DX: M54.2 Cervicalgia (principal); E03.9 Hypothyroidism, unspecified
CPT/HCPCS: 36415; 72040; 84443

== ENCOUNTER → 2024-12-12 10:08 | Outpatient (BNV) | payer MEDICARE, SELFPAY | PROVIDERS: PCP Internal Medicine; Visit Provider Radiology Diagnostic Radiology | DX: M47.812 Spondylosis without myelopathy or radiculopathy, cervical region (principal) | CPT/HCPCS: 72040 ==